=== PATIENT | female | born 1985 | race Hispanic/Latino ===

== ENCOUNTER 2018-04-25 17:02 | Emergency (ER) | payer OTHER ==
[~2018-04-25] VITALS: Ht 160 cm; Wt 78.0 kg
[2018-04-25 19:21] LABS: BASOPHILS % 0.2 % (0.0-1.0); EOSINOPHILS % 0.4 % (0.0-6.0); HEMATOCRIT 40.9 % (34.2-44.1); HEMOGLOBIN 13.7 g/dL (12.0-16.0); LYMPHOCYTES # (AUTO) 0.6 (1.0-3.2); LYMPHOCYTES % 11.4 % (18.0-39.1); MEAN CORPUSCULAR HEMOGLOBIN 31.3 pg (28-32); MEAN CORPUSCULAR HGB CONC 33.5 g/dL (31-35); MEAN CORPUSCULAR VOLUME 93.4 fL (81-99); MONOCYTES # (AUTO) 0.3 (0.2-0.8); MONOCYTES % 4.4 % (4.4-11.3); NEUTROPHILS # (AUTO) 4.7 (2.1-6.9); NEUTROPHILS % 83.4 % (38.7-80.0); PLATELET COUNT 258 x10e3/uL (140-360); RED BLOOD COUNT 4.38 x10e6/uL (3.6-5.1)
[2018-04-25 19:42] LABS: ALANINE AMINOTRANSFERASE 17 IU/L (0-55); ALBUMIN/GLOBULIN RATIO 1.1 (0.8-2.0); ALKALINE PHOSPHATASE 49 IU/L (40-150); ANION GAP 13.7 mmol/L (8-16); BLOOD UREA NITROGEN 7 mg/dL (7-26); BUN/CREATININE RATIO 10 (6-25); CALCIUM 9.7 mg/dL (8.4-10.2); CARBON DIOXIDE 26 mmol/L (22-29); CHLORIDE 99 mmol/L (98-107); CREATININE, SERUM 0.71 mg/dL (0.57-1.11); EST GLOMERULAR FILTRATION RATE > 60 ML/MIN (60-); GLUCOSE 94 mg/dL (74-118); POTASSIUM 3.7 mmol/L (3.5-5.1); SODIUM 135 mmol/L (136-145)
[2018-04-25 19:54] LABS: MAGNESIUM 2.2 MG/DL (1.3-2.1)
[2018-04-25 20:43] LABS: BILIRUBIN,URINE NEGATIVE (NEGATIVE); CLARITY,URINE CLEAR (CLEAR); COLOR,URINE YELLOW (YELLOW); KETONES,URINE NEGATIVE (NEGATIVE); LEUKOCYTE ESTERASE ,URINE NEGATIVE (NEGATIVE); NITRITE,URINE NEGATIVE (NEGATIVE); PREGNANCY TEST, URINE NEGATIVE (NEGATIVE); PROTEIN,URINE DIPSTICK NEGATIVE (NEGATIVE); URINE UROBILINOGEN 0.2 mg/dL (0.2 - 1)
[2018-04-25 20:52] LABS: BACTERIA,URINE MODERATE /HPF; EPITHELIAL CELLS,URINE MODERATE /LPF
[2018-04-25] MEDS ORDERED: DONNATAL/LIDOCAINE/MAALOX 30 ML SUSP PO ONE ×2 (21:00→21:45)
--- NOTE | 2018-04-25 21:46 | Diagnostic Imaging Report ---
CT Abdomen And Pelvis with Intravenous Contrast INDICATION: Mid abdominal/epigastric pain ^EPIGASTRIC PAIN ^[id number] ^2116 TECHNIQUE: Thin collimation axial images obtained from the diaphragm to the level of the pubic symphysis following the uneventful administration of 100 cc of low osmolar, nonionic intravenous contrast. Dose reduction techniques used: Automated exposure control, adjustment of the mAs and/or kVp according to patient size, standardized low-dose protocol, and/or iterative reconstruction technique. RADIATION DOSE: Total DLP: 401.73 mGy*cm Estimated effective dose: (DLP x 0.015 x size factor) mSv CTDIvol has been reviewed. It is below the limits set by the Radiation Protocol Committee (RPC). COMPARISON: None. ABDOMEN FINDINGS: Lung Bases: Clear. The visualized portions of the mediastinum are normal.. Liver: Mildly decreased attenuation. Multiple low attenuating lesions in each lobe, particularly the left lobe, measuring up to 2.3 x 2.8 cm. This largest lesion is lobulated. No hypervascular lesions. Gallbladder: Present and appears normal. No biliary ductal dilatation. Pancreas: Normal attenuation without mass or ductal dilatation. Spleen: Normal in size. No evidence of mass.. Adrenal Glands: No evidence for mass. Kidneys: Right: Normal enhancement. No soft tissue mass. No hydronephrosis. Left: Normal enhancement. No soft tissue mass. No hydronephrosis. Lymph Nodes: No enlarged abdominal or retroperitoneal lymph nodes. Aorta: Normal in diameter PELVIS FINDINGS: Bowel: Stomach: There is fluid and food distending the stomach. Small Bowel: A mid small bowel loop is distended with fluid to 2.7 cm with normal mural enhancement and without surrounding inflammation. Remainder of the small bowel is normal. No inspissated enteric contents. Large Bowel: Normal in caliber with normal wall thickness. Appendix: Normal appendix. Bladder: Normal. The uterus is present and normal in morphology. No adnexal mass. Peritoneum/retroperitoneum: No free fluid or fluid collection. Bones: Unremarkable. Soft tissues: Unremarkable. IMPRESSION: 1. Mildly distended small bowel loop in the midabdomen without dilatation. This may represent a very mild ileus or the result of water ingestion. The remainder of the bowel is normal. 2. Multiple hepatic cysts as described above. Mild steatosis. Signed by: Dr. Kelley Novak MD on 04/25/2018 9:42 PM
[2018-04-25] MEDS ORDERED: IOPAMIDOL 370 MG/ML 200 ML INFUS..BTL INJ ONE (22:54)
[2018-04-25] MEDS ORDERED: SODIUM CHLORIDE 0.9% 50ML 50 ML ONE (22:54)
[2018-04-25 23:15] VITALS: BP 98/65
== END 2018-04-25 23:28 | disposition home or self-care (01) ==
LOC: ER 17:02
DX: R10.13 Epigastric pain (principal); R11.0 Nausea; K21.9 Gastro-esophageal reflux disease without esophagitis
CPT/HCPCS: 36415; 74177; 80053; 81001; 81025; 82150; 83690; 83735; 85025; 99283; Q9967

== ENCOUNTER 2018-12-30 12:05 | Emergency (ER) | payer OTHER ==
[~2018-12-30] VITALS: Ht 160 cm; Wt 78.0 kg
--- OUTSIDE RECORDS SUMMARY | 2018-12-30 12:07 | XMS REPORT ---
Author Author [facility] Address Unknown Phone Unavailable Care Team Providers Care Unit Manager Rn Name Role Phone Peggy RATLIFF Unavailable Unavailable Payers Payer Name Policy Type Policy Number Effective Date Expiration Date Problems This patient has no known problems. Allergies, Adverse Reactions, Alerts Allergy Name Allergy Type Status Severity Reaction(s) Onset Date Inactive Date Treating Clinician Comments No Known Allergies DA Active U 2018-05-06 00:00:00 Medications This patient has no known medications. Results Test Description Test Time Test Comments Text Results Atomic Results Result Comments DUODENUM,BIOPSY 2018-05-08 15:37:00 RUN DATE: 05/08/18 [facility] PAGE 1 RUN TIME: 1537 Specimen Inquiry RUN USER: INTERFACE PATIENT: KRISTEN PEREZ LOC: FRANCES U #: [id number] AGE/SX: 32/F ROOM: RE05/07/18REG DR: Rashad Chaudhry MD : 81 BED: DIS: STATUS: [facility] [place] TLOC: SPEC #: [id number] RECD: 05/07/18 STATUS: DAYNE HARP #: [id number] ROSA: 05/07/[address] [facility] [address]: Rashad Chaudhry MD ENTERED: 05/07/18 SP TYPE: BX DUODEN OTHR DR: Isha Jansen MD ORDERED: GROSS COPIES TO: Rashad Chaudhry MD [address] [place] [address] Isha Jansen MD [address] [facility] [place] [address] PROCEDURES: GROSS (05/08/18-152) TISSUES: 1. DUODENUM, NOS - 2nd PORTION BX 2. ANTRUM - BX 3. ESOPHAGUS, NOS - PROXIMAL NODULE CLINICAL HISTORY COLLECTION DATE: 05/07/2018 ABDOMINAL PAIN POST-OP DIAGNOSIS: MILD DISTAL ESOPHAGITIS, GASTRITIS, MINUTE NODULE CERVICAL ESOPHAGUS COMMENT A few intraepithelial lymphocytes are identified in sections of the first specimen. The majority pf the villi are unremarkable in appearance but focal, mild blunting is noted. The findings are non-specific but suggestive of sprue. Correlation is necessary. Intradepartmental consultation: [facility] FINAL DIAGNOSIS Second portion of duodenum, biopsy: DUODENAL MUCOSA WITH UNREMARKABLE VILLOUS ARCHITECTURE, FOCAL AREAS OF MILD VILLOUS BLUNTING, AND MILDLY INCREASED INTRAEPITHELIAL LYMPHOCYTES NEGATIVE FOR MALIGNANCY HISTOLOGIC FEATURES SUGGESTIVE OF SPRUE CONTINUED ON NEXT PAGE RUN DATE: 05/08/18 [facility] PAGE 2 RUN TIME: 1537 Specimen Inquiry RUN USER: INTERFACE SPEC #: [id number] PATIENT: KRISTEN PEREZ #[id number] (Continued) FINAL DIAGNOSIS (Continued) Gastric antrum, biopsy: GASTRIC MUCOSA WITH NO SIGNIFICANT ACUTE OR CHRONIC INFLAMMATORY INFILTRATE NEGATIVE FOR INTESTINAL METAPLASIA NO AREAS OF MUCOSAL EROSION/ULCERATION NEGATIVE FOR HELICOBACTER ORGANISMS NEGATIVE FOR MALIGNANCY Proximal esophageal nodule, biopsy: SQUAMOUS MUCOSA WITH MILD ELONGATION OF SQUAMOUS PAPILLAE AND FEW INTRAEPITHELIAL LYMPHOCYTES NO INCREASED NUMBER OF INTRAEPITHELIAL EOSINOPHILS NO GLANDULAR EPITHELIUM PRESENT NEGATIVE FOR HIGH GRADE DYSPLASIA AND MALIGNANCY RRB/arnaud D [phone] MACROSCOPIC The first specimen is received in formalin, labeled with the patient's name, identified as "2nd portion duodenum". It consists of fernandez biopsy tissue measuring 0.5 cm in aggregate, submitted as (1). The second specimen is received in formalin, labeled with the patient's name, identified as "antrum bx". It consists of fernandez biopsy tissue measuring 0.6 cm in aggregate, submitted as (2). An H E and a Giemsa stain will be prepared. The third specimen is received in formalin, labeled with the patient's name, identified as "proximal esophagus nodule". It consists of fernandez biopsy tissue measuring 0.3 cm, submitted as (3). GROSS PERFORMED AT [facility] [address] [facility] [place] [address] (P)[phone] MICROSCOPIC All of the stains, including any controls performed, stain appropriately. MICROSCOPIC PERFORMED AT [facility] [address] [facility] [place] [address] (P)[phone] CONTINUED ON NEXT PAGE RUN DATE: 05/08/18 [facility] PAGE 3 RUN TIME: 1537 Specimen Inquiry RUN USER: INTERFACE SPEC #: [id number] PATIENT: KRISTEN PEREZ #[id number] (Continued) PERFORMING SITE Diagnosis performed at: [facility], [place] [address] [facility] [place] [address] Signed SIGNATURE ON FILE Santino Galvin MD 05/08/18 1537 END OF REPORT UR HCG QUAL 2018-05-06 10:48:00 UR HCG QUAL (test code=HCGQLU) NEGATIVE This HCGQL test is NOT applicable for MALE patients.Check with nurse about probable order error.If Tumor Marker Test needed, nurse should order test "HCGTU"(Test #[id number]) CT ABDOMEN/PELVIS [id number] 21:35:00 [place] [address] Patient Name: KRISTEN PEREZ MR #: [id number] : 1985 Age/Sex: 32/F Req #: [id number] [facility] Physician: Ordered by: ABENA RATLIFF MD Report #: [id number] Location: ER Room/Bed: Procedure: [id number] CT/CT ABDOMEN/PELVIS W Exam Date: 04/25/18 Exa m Time: 2116 REPORT STATUS: Signed CT Abdomen And Pelvis with Intravenous Contrast INDICATION: Mid abdomina l/epigastric pain EPIGASTRIC PAIN [id number] TECHNIQUE: Thin collimation axial images obtained from the diaphragm to the level of the pubic symphysis following the uneventful administration of 100 cc of low osmolar, nonionic intravenous contrast. Dose reduction techniques used: Automated ex posure control, adjustment of the mAs and/or kVp according to patient size, st andardized low-dose protocol, and/or iterative reconstruction technique. RADIATION DOSE: Total DLP: 401.73 mGy*cm Estimated effective dose: (DLP x 0.015 x size factor) mSv CTDIvol has been reviewed. It is below the limits set by the Radiation Protocol Committee (RPC). COMPARISO N: None. ABDOMEN FINDINGS: Lung Bases: Clear. The visualized portion s of the mediastinum are normal.. Liver: Mildly decreased attenuation. Mult iple low attenuating lesions in each lobe, particularly the left lobe, measuri ng up to 2.3 x 2.8 cm. This largest lesion is lobulated. No hypervascular lesi ons. Gallbladder: Present and appears normal. No biliary ductal dilatation. Pancreas: Normal attenuation without mass or ductal dilatation. Splee n: Normal in size. No evidence of mass.. Adrenal Glands: No evidence for m ass. Kidneys: Right: Normal enhancement. No soft tissue mass. No hy dronephrosis. Left: Normal enhancement. No soft tissue mass. No hydronep hrosis. Lymph Nodes: No enlarged abdominal or retroperitoneal lymph nodes. Aorta: Normal in diameter PELVIS FINDINGS: Bowel: Stomach: There is fluid and food distending the stomach. Small Bowel: A mid small bowel loop is distended with fluid to 2.7 cm with normal mural enhancement and wit hout surrounding inflammation. Remainder of the small bowel is normal. No insp issated enteric contents. Large Bowel: Normal in caliber with normal wall th ickness. Appendix: Normal appendix. Bladder: Normal. The uterus is present and normal in morphology. No adnexal mass. Peritoneum/retroperiton eum: No free fluid or fluid collection. Bones: Unremarkable. Soft tiss ues: Unremarkable. IMPRESSION: 1. Mildly distended small bowel loop in the midabdomen without dilatation. This may represent a very mild ileus or the result of water ingestion. The remainder of the bowel is normal. 2. Multiple hepatic cysts as described above. Mild steatosis. Signed by: Dr. Christina Novak MD on 04/25/2018 9:42 PM Dictated By: CHRISTINA NOVAK MD 41 Transcribed By: FELIPE on 04/25/182141 COPY TO: ABENA RATLIFF MD
[2018-12-30] MEDS ORDERED: DIATRIZOATE MEGL/DIATRIZOA SOD 30 ML BTL PO ONE (13:08)
[2018-12-30 13:09] LABS: BASOPHILS % 0.5 % (0.0-1.0); EOSINOPHILS # (AUTO) 0.1 (0.0-0.4); EOSINOPHILS % 0.8 % (0.0-6.0); HEMATOCRIT 36.3 % (34.2-44.1); HEMOGLOBIN 12.5 g/dL (12.0-16.0); LYMPHOCYTES # (AUTO) 1.8 (1.0-3.2); LYMPHOCYTES % 27.9 % (18.0-39.1); MEAN CORPUSCULAR HEMOGLOBIN 32.8 pg (28-32); MEAN CORPUSCULAR HGB CONC 34.4 g/dL (31-35); MEAN CORPUSCULAR VOLUME 95.3 fL (81-99); MONOCYTES # (AUTO) 0.5 (0.2-0.8); MONOCYTES % 7.1 % (4.4-11.3); NEUTROPHILS # (AUTO) 4.2 (2.1-6.9); NEUTROPHILS % 63.4 % (38.7-80.0); PLATELET COUNT 243 x10e3/uL (140-360); RED BLOOD COUNT 3.81 x10e6/uL (3.6-5.1); RED CELL DISTRIBUTION WIDTH 12.7 % (11.7-14.4)
[2018-12-30 13:32] LABS: ALANINE AMINOTRANSFERASE 16 IU/L (0-55); ALBUMIN 3.9 g/dL (3.5-5.0); ALBUMIN/GLOBULIN RATIO 1.1 (0.8-2.0); ALKALINE PHOSPHATASE 50 IU/L (40-150); ANION GAP 12.4 mmol/L (8-16); BLOOD UREA NITROGEN 5 mg/dL (7-26); BUN/CREATININE RATIO 8 (6-25); CALCIUM 9.4 mg/dL (8.4-10.2); CARBON DIOXIDE 27 mmol/L (22-29); CHLORIDE 100 mmol/L (98-107); CREATININE, SERUM 0.65 mg/dL (0.57-1.11); EST GLOMERULAR FILTRATION RATE > 60 ML/MIN (60-); GLUCOSE 84 mg/dL (74-118); POTASSIUM 3.4 mmol/L (3.5-5.1); SODIUM 136 mmol/L (136-145)
[2018-12-30] MEDS ORDERED: SODIUM CHLORIDE 0.9% 50ML 50 ML ONE (13:53)
[2018-12-30] MEDS ORDERED: IOPAMIDOL 370 MG/ML 200 ML INFUS..BTL INJ ONE (13:53)
[2018-12-30 14:57] LABS: PREGNANCY TEST, URINE NEGATIVE (NEGATIVE)
[2018-12-30 15:18] LABS: BACTERIA,URINE RARE /HPF; BILIRUBIN,URINE NEGATIVE (NEGATIVE); CLARITY,URINE CLEAR (CLEAR); COLOR,URINE YELLOW (YELLOW); EPITHELIAL CELLS,URINE FEW /LPF; KETONES,URINE NEGATIVE (NEGATIVE); LEUKOCYTE ESTERASE ,URINE NEGATIVE (NEGATIVE); NITRITE,URINE NEGATIVE (NEGATIVE); PROTEIN,URINE DIPSTICK NEGATIVE (NEGATIVE); URINE UROBILINOGEN 0.2 mg/dL (0.2 - 1)
--- NOTE | 2018-12-30 17:02 | Diagnostic Imaging Report ---
CT Abdomen And Pelvis with Intravenous Contrast INDICATION: Diarrhea, constipation ^LLQ Quad pain ^[id number] ^1537 TECHNIQUE: Thin collimation axial images obtained from the diaphragm to the level of the pubic symphysis following the uneventful administration of 100 cc of low osmolar, nonionic intravenous contrast. Oral contrast was administered. Dose reduction techniques used: Automated exposure control, adjustment of the mAs and/or kVp according to patient size, standardized low-dose protocol, and/or iterative reconstruction technique. RADIATION DOSE: Total DLP: 503.4 mGy*cm Estimated effective dose: (DLP x 0.015 x size factor) mSv CTDIvol has been reviewed. It is below the limits set by the Radiation Protocol Committee (RPC). COMPARISON: CT abdomen/pelvis 04/25/2018. ABDOMEN FINDINGS: Lung Bases: Clear. The visualized portions of the mediastinum are normal. Liver: Mild steatosis. Cysts in the left lobe are stable, with the largest measuring 3.0 x 2.7 cm. There are scattered subcentimeter low attenuating lesions in each lobe suggestive of cysts. These are also stable. Gallbladder: Present and appears normal. No biliary ductal dilatation. Pancreas: Normal attenuation without mass or ductal dilatation. Spleen: Normal in size. No evidence of mass. Adrenal Glands: No evidence for mass. Kidneys: Right: Normal enhancement. No soft tissue mass. No hydronephrosis. Left: Normal enhancement. No soft tissue mass. No hydronephrosis. Lymph Nodes: No lymphadenopathy. Aorta: Normal in diameter PELVIS FINDINGS: Bowel: Stomach: Collapsed but otherwise normal. Small Bowel: Enteric contrast is within distal small bowel loops. There is no dilatation or mural thickening of the small bowel. Large Bowel: Contains enteric contrast in the right colon. Moderate burden of stool throughout. There is no evidence of dilatation or focal mural thickening. No pericolonic inflammation. Appendix: Normal appendix. Bladder: Normal. The uterus is present and normal in morphology. There is a cyst or dominant follicle in the left ovary measuring 2.4 cm. Peritoneum/retroperitoneum: No free fluid or fluid collection. Bones: The hemangioma in T10 is stable. No new focal osseous lesions. IMPRESSION: 1. No evidence for bowel obstruction or inflammation. Normal appendix. Moderate stool burden may correspond to constipation in the appropriate clinical context. 2. Stable hepatic cysts. 3. Cyst or dominant follicle in the left ovary. Signed by: Dr. Kelley Novak MD on 12/30/2018 4:59 PM
== END 2018-12-30 17:46 | disposition home or self-care (01) ==
LOC: ER 12:05
DX: R10.32 Left lower quadrant pain (principal); K59.00 Constipation, unspecified
CPT/HCPCS: 36415; 74177; 80053; 81001; 81025; 85025; 99284; Q9967

== ENCOUNTER 2019-10-21 16:57 | Emergency (ER) | payer OTHER ==
[~2019-10-21] VITALS: Ht 160 cm; Wt 83.9 kg
[2019-10-21] MEDS ORDERED: KETOROLAC TROMETHAMINE 30 MG/ML VIAL IV NR (18:00)
[2019-10-21] MEDS ORDERED: SODIUM CHLORIDE FLUSH 10 ML SYR INJ PRN (18:00)
[2019-10-21] MEDS ORDERED: ONDANSETRON HCL INJ 2MG/ML 2ML 2 MG/ML VIAL IV NR (18:00)
[2019-10-21] MEDS ORDERED: LIDOCAINE VISC 2% SOLN 15 ML UDC ONE (18:01)
[2019-10-21] MEDS ORDERED: MAGNESIUM/ALUMINUM/SIMETHICONE 30 ML UDC ONE (18:01)
[2019-10-21] MEDS ORDERED: BELLADONNA ALK/PHENOBARBITAL 5 ML UDC ONE (18:01)
--- OUTSIDE RECORDS SUMMARY | 2019-10-21 18:07 | XMS REPORT | Continuity of Care Document ---
Author Author [facility] t Organization [facility] Address [address] [place] [address] Phone Unavailable Care Team Providers Care Photo Colorer Name Role Phone Willi JANSEN M.D. PCP ABENA CHUA Unavailable Payers Payer Name Policy Type Policy Number Effective Date Expiration Date Peggy Lo [facility] [id number] 2015 00:00:00 [facility] Problems This patient has no known problems. Allergies, Adverse Reactions, Alerts Allergy Name Allergy Type Status Severity Reaction(s) Onset Date Inacti ve Date Treating Clinician Comments Source No Known Allergies DA Active U 2018-05-06 00:00:00 [facility] Medications This patient has no known medications. Procedures Procedure Date / Time Performed Performing Clinician Sour e Computed tomography of abdomen and pelvis with contrast 2018 00:00:00 TRACI BELTRÁN [facility] Computed tomography of abdomen and pelvis with contrast 2018 00:00:00 ABENA CHUA [facility] Encounters Start Date/Time End Date/Time Encounter Type Admission Type Attendi [facility] Facility Care Department Encounter ID Source 2018-12-30 12:05:00 2018-12-30 17:46:00 Departed Emergency Room 1 [facility] [id number] [facility] 2018-04-25 17:02:00 2018-04-25 23:28:00 Departed Emergency Room 1 EVY ABENA [facility] [id number] [facility] Results Test Description Test Time Test Comments Results Result Comments Source CT ABDOMEN/PELVIS W 2018-12-30 16:53:00 [facility] [address] [address] Patient Name: KRISTEN PEREZ MR #: [id number] : 1985 Age/Sex: 33/F Req #: [id number] Adm Physician: Ordered by: TRACI BELTRÁN NP Report #: [id number] Location: ER Room/Bed: Procedure: [id number] CT/CT ABDOMEN/PELVIS W Exam Date: 12/30/18 Exam Time: 1537 REPORT STATUS: Signed CT Abdomen And Pelvis with Intravenous Contrast INDICATION: Diarrhea, constipation LLQ Quad pain [id number] TECHNIQUE: Thin collimation axial images obtained from the diaphragm to the level of the pubic symphysis following the uneventful administration of 100 cc of low osmolar, nonionic intravenous contrast. Oral contrast was administered. Dose reduction techniques used: Automated exposure control, adjustment of the mAs and/or kVp according to patient size, standardized low- dose protocol, and/or iterative reconstruction technique. RADIATION DOSE: Total DLP: 503.4 mGy*cm Estimated effective dose: (DLP x 0.015 x size factor) mSv CTDIvol has been reviewed. It is below the limits set by the Radiation Protocol Committee (RPC). COMPARISON: CT abdomen/pelvis 04/25/2018. ABDOMEN FINDINGS: Lung Bases: Clear. The visualized portions of the mediastinum are normal. Liver: Mild steatosis. Cysts in the left lobe are stable, with the largest measuring 3.0 x 2.7 cm. There are scattered subcentimeter low attenuating lesions in each lobe suggestive of cysts. These are also stable. Gallbladder: Present and appears normal. No biliary ductal dilatation. Pancreas: Normal attenuation without mass or ductal dilatation. Spleen: Normal in size. No evidence of mass. Adrenal Glands: No evidence for mass. Kidneys: Right: Normal enhancement. No soft tissue mass. No hydronephrosis. Left: Normal enhancement. No soft tissue mass. No hydronephrosis. Lymph Nodes: No lymphadenopathy. Aorta: Normal in diameter PELVIS FINDINGS: Bowel: Stomach: Collapsed but otherwise normal. Small Bowel: Enteric contrast is within distal small bowel loops. There is no dilatation or mural thickening of the small bowel. Large Bowel: Contains enteric contrast in the right colon. Moderate burden of stool throughout. There is no evidence of dilatation or focal mural thickening. No pericolonic inflammation. Cliff endix: Normal appendix. Bladder: Normal. The uterus is present and normal in morphology. There is a cyst or dominant follicle in the left ovary measuring 2.4 cm. Peritoneum/retroperitoneum: No free fluid or fluid collection. Bones: The hemangioma in T10 is stable. No new focal osseous lesions. IMPRESSION: 1. No evidence for bowel obstruction or inflammation. Normal appendix. Moderate stool burden may correspond to constipation in the appropriate clinical context. 2. Stable hepatic cysts. 3. Cyst or dominant follicle in the left ovary. Signed by: Dr. Christina Novak MD on 12/30/2018 4:59 PM Dictated By: CHRISTINA NOVAK MD 56 Transcribed By: FELIPE on 12/30/181658 COPY TO: TRACI BELTRÁN NP Urine Color 2018-12-30 15:18:00 Test Item Urine Color (test code = 5778-6) YELLOW YELLOW [facility] Xchlkut5871-75-47 15:18:00* Test Item Value Reference Range Interpretation Comments Urine Clarity (test code = 30421-7) CLEAR CLEAR [facility] Specific Mvneceb4491-89-51 15:18:00 * Test Item Value Reference Range Interpretation Comments Urine Specific [place] (test code = 5811-5) <=1.005 1.010-1.02 5 [facility] kU8125-93-42 15:18:00* Test Item Value Reference Range Interpretation Comments Urine pH (test code = 10971-9) 6.5 5-7 [facility] Leukocyte Espnpcgl5222-96-22 15:18:00* Test Item Value Reference Range Interpretation Comments Urine Leukocyte Esterase (test code = 26630-9) NEGATIVE NEGATIV E [facility] Gyyjdad6582-34-07 15:18:00* Test Item Value Reference Range Interpretation Comments Urine Nitrite (test code = 50755-2) NEGATIVE NEGATIVE [facility] Hrvdvog7202-60-80 15:18:00* Test Item Value Reference Range Interpretation Comments Urine Protein (test code = 10727-4) NEGATIVE NEGATIVE [facility] Glucose (UA)2018-12-30 15:18:00* Test Item Value Reference Range Interpretation Comments Urine Glucose (UA) (test code = 97524-3) NEGATIVE NEGATIVE [facility] Zmwoskl8183-57-06 15:18:00* Test Item Value Reference Range Interpretation Comments Urine Ketones (test code = 96778-8) NEGATIVE NEGATIVE [facility] Baqybzyuohzn1649-44-88 15:18:00* Test Item Value Reference Range Interpretation Comments Urine Urobilinogen (test code = 61101-7) 0.2 0.2-1 [facility] Kfgoamiii3608-86-84 15:18:00* Test Item Value Reference Range Interpretation Comments Urine Bilirubin (test code = 1977-8) NEGATIVE NEGATIVE [facility] Wtwhu5725-70-92 15:18:00* Test Item Value Reference Range Interpretation Comments Urine Blood (test code = 03796-7) TRACE NEGATIVE [facility] KGY1683-71-43 15:18:00* Test Item Value Reference Range Interpretation Comments Urine WBC (test code = 5821-4) NONE 0-5 [facility] SNT9552-61-15 15:18:00* Test Item Value Reference Range Interpretation Comments Urine RBC (test code = 99676-6) NONE 0-5 [facility] Adnizfeq5602-68-68 15:18:00* Test Item Value Reference Range Interpretation Comments Urine Bacteria (test code = 64776-2) RARE NONE [facility] Epithelial Tpnfd1290-46-65 15:18:00 * Test Item Value Reference Range Interpretation Comments Urine Epithelial Cells (test code = 62289-3) FEW NONE [facility] Riwx8024-15-57 14:57:00* Test Item Value Reference Range Interpretation Comments Urine Test (test code = 2106-3) NEGATIVE NEGATIVE [facility] Tnvsv9733-33-62 13:34:00* Test Item Value Reference Range Interpretation Comments Sodium Level (test code = 2951-2) 136 136-145 [facility]Pot[facility] Ptphh2753-48-97 13:34:00* Test Item Value Reference Range Interpretation Comments Potassium Level (test code = 2823-3) 3.4 3.5-5.1 L [facility] HospitalChloride Lccyc2240-19-62 13:34:00* Test Item Value Reference Range Interpretation Comments Chloride Level (test code = 2075-0) 100 98-107 [facility] HospitalCarbon Dioxide Zsony1038-12-40 13:34:00* Test Item Value Reference Range Interpretation Comments Carbon Dioxide Level (test code = 2028-9) 27 22-29 [facility] HospitalAnion Joc2529-84-77 13:34:00* Test Item Value Reference Range Interpretation Comments Anion Gap (test code = 96141-8) 12.4 8-16 [facility] HospitalBlood Urea Xqdmnxfb6764-91-96 13:34:00* Test Item Value Reference Range Interpretation Comments Blood Urea Nitrogen (test code = 3094-0) 5 7-26 L [facility] HospitalCreatinine2019-11-04 13:34:00* Test Item Value Reference Range Interpretation Comments Creatinine (test code = 2160-0) 0.65 0.57-1.11 [facility] HospitalBUN/Creatinine Iesls1567-33-63 13:34:00* Test Item Value Reference Range Interpretation Comments BUN/Creatinine Ratio (test code = 3097-3) 8 6-25 [facility] HospitalEstimat Glomerular Filtration Rate 2018-12-30 13:34:00* Test Item Value Reference Range Interpretation Comments Estimat Glomerular Filtration Rate (test code = 498735368) > 60 >60 Ranges were taken from the National Kidney Disease Education Program and the [facility] [employer] literature.Reference ranges:60 or greater: Xbpyfl69-55 ( for 3 consecutive months): Chronic kidney disease 15 or less: Kidney failureHouston Methodist HospitalGlucose Pirpg2068-90-72 13:34:00* Test Item Value Reference Range Interpretation Comments Glucose Level (test code = PZK9325) 84 74-118 [facility] HospitalCalcium Jzkyt7970-93-31 13:34:00* Test Item Value Reference Range Interpretation Comments Calcium Level (test code = 49265-6) 9.4 8.4-10.2 [facility]Tostew[facility] Bkibqobpu0365-41-01 13:34:00* Test Item Value Reference Range Interpretation Comments Total Bilirubin (test code = 1975-2) 0.4 0.2-1.2 [facility] HospitalAspartate Amino Transf (AST/SGOT) 2018-12-30 13:34:00* Test Item Value Reference Range Interpretation Comments Aspartate Amino Transf (AST/SGOT) (test code = Aspartate Amino Transf (AST/SGOT)) 16 5-34 [facility] HospitalAlanine Aminotransferase (ALT/SGPT) 2018-12-30 13:34:00* Test Item Value Reference Range Interpretation Comments Alanine Aminotransferase (ALT/SGPT) (test code = 1742-6) 16 0-55 [facility] HospitalTotal Xaccxxa5110-95-31 13:34:00* Test Item Value Reference Range Interpretation Comments Total Protein (test code = 2885-2) 7.6 6.5-8.1 [facility] HospitalAlbumin2019-11-04 13:34:00* Test Item Value Reference Range Interpretation Comments Albumin (test code = 1751-7) 3.9 3.5-5.0 [facility] HospitalGlobulin2019-11-04 13:34:00* Test Item Value Reference Range Interpretation Comments Globulin (test code = 25431-6) 3.7 2.3-3.5 H [facility] HospitalAlbumin/Globulin Dxoin5447-08-12 13:34:00 * Test Item Value Reference Range Interpretation Comments Albumin/Globulin Ratio (test code = 1759-0) 1.1 0.8-2.0 [facility] HospitalAlkaline Ymxvngeofur6414-00-33 13:34:00* Test Item Value Reference Range Interpretation Comments Alkaline Phosphatase (test code = 6768-6) 50 40-150 [facility] HospitalWhite Blood Vypui0468-38-34 13:13:00* Test Item Value Reference Range Interpretation Comments White Blood Count (test code = 6690-2) 6.60 4.8-10.8 [facility] HospitalRed Blood Dszbt7009-38-66 13:13:00* Test Item Value Reference Range Interpretation Comments Red Blood Count (test code = 789-8) 3.81 3.6-5.1 [facility] HospitalHemoglobin2019-11-04 13:13:00* Test Item Value Reference Range Interpretation Comments Hemoglobin (test code = 10167-8) 12.5 12.0-16.0 [facility] HospitalHematocrit2019-11-04 13:13:00* Test Item Value Reference Range Interpretation Comments Hematocrit (test code = 4544-3) 36.3 34.2-44.1 [facility] HospitalMean Corpuscular Mgratq2456-00-02 13:13:00* Test Item Value Reference Range Interpretation Comments Mean Corpuscular Volume (test code = 787-2) 95.3 81-99 [facility] HospitalMean Corpuscular Snojtsmqls2811-74-47 13:13:00* Test Item Value Reference Range Interpretation Comments Mean Corpuscular Hemoglobin (test code = 785-6) 32.8 28-32 H [facility] HospitalMean Corpuscular Hemoglobin Concent 2018-12-30 13:13:00* Test Item Value Reference Range Interpretation Comments Mean Corpuscular Hemoglobin Concent (test code = 786-4) 34.4 31-35 [facility] HospitalRed Cell Distribution Ygury6663-69-49 13:13:00* Test Item Value Reference Range Interpretation Comments Red Cell Distribution Width (test code = 20948-8) 12.7 11.7 -14.4 [facility] HospitalPlatelet Fpwvi0046-66-83 13:13:00* Test Item Value Reference Range Interpretation Comments Platelet Count (test code = 777-3) 243 140-360 [facility] HospitalNeutrophils (%) (Auto)2018-12-30 13:13:00 * Test Item Value Reference Range Interpretation Comments Neutrophils (%) (Auto) (test code = 17263-5) 63.4 38.7-80.0 [facility] HospitalLymphocytes (%) (Auto)2018-12-30 13:13:00 * Test Item Value Reference Range Interpretation Comments Lymphocytes (%) (Auto) (test code = 736-9) 27.9 18.0-39.1 [facility] HospitalMonocytes (%) (Auto)2018-12-30 13:13:00* Test Item Value Reference Range Interpretation Comments Monocytes (%) (Auto) (test code = 5905-5) 7.1 4.4-11.3 [facility] HospitalEosinophils (%) (Auto)2018-12-30 13:13:00 * Test Item Value Reference Range Interpretation Comments Eosinophils (%) (Auto) (test code = 713-8) 0.8 0.0-6.0 [facility] HospitalBasophils (%) (Auto)2018-12-30 13:13:00* Test Item Value Reference Range Interpretation Comments Basophils (%) (Auto) (test code = 706-2) 0.5 0.0-1.0 [facility] HospitalIM GRANULOCYTES %2018-12-30 13:13:00* Test Item Value Reference Range Interpretation Comments IM GRANULOCYTES % (test code = IM GRANULOCYTES %) 0.3 0.0- 1.0 [facility] HospitalNeutrophils # (Auto)2018-12-30 13:13:00* Test Item Value Reference Range Interpretation Comments Neutrophils # (Auto) (test code = 751-8) 4.2 2.1-6.9 [facility] HospitalLymphocytes # (Auto)2018-12-30 13:13:00* Test Item Value Reference Range Interpretation Comments Lymphocytes # (Auto) (test code = 78569-5) 1.8 1.0-3.2 [facility] HospitalMonocytes # (Auto)2018-12-30 13:13:00* Test Item Value Reference Range Interpretation Comments Monocytes # (Auto) (test code = 742-7) 0.5 0.2-0.8 [facility] HospitalEosinophils # (Auto)2018-12-30 13:13:00* Test Item Value Reference Range Interpretation Comments Eosinophils # (Auto) (test code = 711-2) 0.1 0.0-0.4 [facility] HospitalBasophils # (Auto)2018-12-30 13:13:00* Test Item Value Reference Range Interpretation Comments Basophils # (Auto) (test code = 704-7) 0.0 0.0-0.1 [facility] HospitalAbsolute Immature Granulocyte (auto 2018-12-30 13:13:00* Test Item Value Reference Range Interpretation Comments Absolute Immature Granulocyte (auto (neris t code = Absolute Immature Granulocyte (auto) 0.02 0-0.1 [facility] HospitalDUODENUM,HTHMCF7187-55-55 15:37:00 RUN DATE: 05/08/18 [facility] PAGE 1 RUN TIME: 1537 Specimen Inqui ry RUN USER: INTERFACE PATIENT: KRISTEN PEREZ ACCT #: [id number] [facility] #: [id number] AGE/SX: 32/F ROOM: RE05/07/18[facility]: Rashad Chaudhry MD : 81 BED: DIS: STATUS: [facility] TLOC: SPEC #: [id number] RECD: 05/07/18 [id number] ROSA: 05/07/18-8 [facility] DR: Rashad Chaudhry MD ENTERED: 05/07/180690 SP TYPE: BX DUODEN OTHR DR: Isha Hernández MD ORDERED: GROSS COPIES TO: Rashad Chaudhry MD [address] [place] [address] Isha Jansen MD [address] [facility] [facility] [place] [address] PROCEDURES: GROSS (05/08/18-1527) TISSUES: 1. DUODENUM, NOS - 2nd PORTION BX 2. ANTRUM - BX 3. ESOPHAGUS, NOS - PROXIMAL NODULE CLINICAL HISTORY COLLECTION DATE: 05/07/2018 ABDOMINAL PAIN POST-OP DIAGNOSIS: MILD D ISTAL ESOPHAGITIS, GASTRITIS, MINUTE NODULE CERVICAL ESOPHAGUS COM MENT A few intraepithelial lymphocytes are identified in sections of the first specimen. The majority pf the villi are unremarkable in appearance but focal, mild blunting is noted. The findings are non-specific but suggestive of sprue. Correlation is necessary. Intradepartmental consultation: DMW FINAL DIAGNOSIS Second portion of duodenum, biopsy: DUODENAL MUCOSA WITH U NREMARKABLE VILLOUS ARCHITECTURE, FOCAL AREAS OF MILD VILLOUS BLUNTING, A ND MILDLY INCREASED INTRAEPITHELIAL LYMPHOCYTES NEGATIVE FOR MALIGNANCY HISTOLOGIC FEATURES SUGGESTIVE OF SPRUE CONTINUED ON NEXT PAGE RUN DATE: 05/08/18 [employer] [facility] PAGE 2 RUN TIME: 1537 Specimen Inquiry RUN USER: INTERFACE SPEC #: [id number] PATIENT: KRISTEN PEREZ #[id number] (Continued)----- ------- FINAL DIAGNOSIS (Continued) Gastric antrum, biopsy: GASTRIC MUCOSA WITH NO SIGNIFICANT ACUTE OR CHRONIC INFLAMMATORY INFILTRATE NEGATIVE FOR INTESTINAL METAPLASIA NO AREAS OF MU COSAL EROSION/ULCERATION NEGATIVE FOR HELICOBACTER ORGANISMS NEGAT JOSE FOR MALIGNANCY Proximal esophageal nodule, biopsy: SQUAMOUS MUCOSA WITH MILD ELONGATION OF SQUAMOUS PAPILLAE AND FEW INTRAEPITHELI AL LYMPHOCYTES NO INCREASED NUMBER OF INTRAEPITHELIAL EOSINOPHILS NO GLANDULAR EPITHELIUM PRESENT NEGATIVE FOR HIGH GRADE DYSPLASIA AND MAL IGNANCY RRB/arnaud D [phone] The fir st specimen is received in formalin, labeled with the patient's name, identifi ed as "2nd portion duodenum". It consists of fernandez biopsy tissue measuring 0.5 cm in aggregate, submitted as (1). The second specimen is received in form issa, labeled with the patient's name, identified as "antrum bx". It consists of fernandez biopsy tissue measuring 0.6 cm in aggregate, submitted as (2). An H E and a Giemsa stain will be prepared. The third specimen is received in fo rmalin, labeled with the patient's name, identified as "proximal esophagus nod ule". It consists of fernandez biopsy tissue measuring 0.3 cm, submitted as (3). GROSS PERFORMED AT [facility] [address] [place] [address] (p)[phone] MICROSCOPIC All of the stains, including any controls performed, stain cliff ropriately. MICROSCOPIC PERFORMED AT [facility] [address] [place] [address] (p)[phone] CONTINUED ON NEXT PAGE RUN DATE: 05/08/18 [facility] PAGE 3 RUN TIME: 1537 Specimen Inquiry RUN USER: INTERFACE - SPEC #: [id number] PATIENT: KRISTEN PEREZ #[id number] (Continued) PERFORMING SITE Diagnosis [facility] at: [facility] [address] [place] [address] Signed SIGNATURE ON FILE Santino Galvin MD 05/08/18 1537 END OF REPORT UR HCG LZTZ9220-26-76 10:48:00* Test Item Value Reference Range Interpretation Comments UR HCG QUAL (test code = HCGQLU) NEGATIVE This HCGQL test is NOT applicable for MALE patients.Check with nurse about probable order error.If Tumor Marker Test needed, nurse should order test "HCGTU"(Test #550.11670) CT ABDOMEN/PELVIS W2609-77-09 21:35:[address] [address] Patient Name: KRISTEN PEREZ MR #: [id number] : 1985 Age/Sex: 32/F Acc #: [id number] Req #: [id number] [facility] Physician: Ordered by: ABENA RATLIFF MD Report #: [id number] Location: ER Room/Bed: Procedure: [id number] -[id number] CT/CT [...] on 04/25/182141 COPY TO: ABENA RATLIFF MD Urine IES4299-17-64 20:52:00* Test Item Value Reference Range Interpretation Comments Urine WBC (test code = 5821-4) NONE 0-5 [facility] HospitalU[facility] XYA2325-80-08 20:52:00* Test Item Value Reference Range Interpretation Comments Urine RBC (test code = 25429-8) NONE 0-5 [facility] HospitalU[facility] Kaajcvdx0821-85-91 20:52:00* Test Item Value Reference Range Interpretation Comments Urine Bacteria (test code = 55184-4) MODERATE NONE H [facility] HospitalUrine Epithelial Uwuie5490-01-83 20:52:00 * Test Item Value Reference Range Interpretation Comments Urine Epithelial Cells (test code = 80934-4) MODERATE NONE [facility] HospitalU[facility] Mbfam9846-37-57 20:43:00* Test Item Value Reference Range Interpretation Comments Urine Color (test code = 5778-6) YELLOW YELLOW [facility] HospitalUrine Mwjkcvv5421-77-47 20:43:00* Test Item Value Reference Range Interpretation Comments Urine Clarity (test code = 26295-3) CLEAR CLEAR [facility] HospitalU[facility] Specific Uqvvzrr8487-59-64 20:43:00 * Test Item Value Reference Range Interpretation Comments Urine Specific [place] (test code = 5811-5) 1.010 1.010-1.02 5 [facility] HospitalUrine sC4680-72-01 20:43:00* Test Item Value Reference Range Interpretation Comments Urine pH (test code = 21154-0) 7 5-7 [facility] HospitalU[facility] Leukocyte Jzifbrni6909-78-48 20:43:00* Test Item Value Reference Range Interpretation Comments Urine Leukocyte Esterase (test code = 5799-2) NEGATIVE NEGATIVE [facility] HospitalU[facility] Pvhzvsw7698-12-00 20:43:00* Test Item Value Reference Range Interpretation Comments Urine Nitrite (test code = 32297-7) NEGATIVE NEGATIVE [facility] HospitalUrine Onnbsca3024-72-37 20:43:00* Test Item Value Reference Range Interpretation Comments Urine Protein (test code = 5804-0) NEGATIVE NEGATIVE [facility] HospitalUrine Glucose (UA)2018-04-25 20:43:00* Test Item Value Reference Range Interpretation Comments Urine Glucose (UA) (test code = 2349-9) NEGATIVE NEGATIVE [facility] HospitalUrine Ookjwwx4791-38-99 20:43:00* Test Item Value Reference Range Interpretation Comments Urine Ketones (test code = 10142-7) NEGATIVE NEGATIVE [facility] HospitalU[facility] Czzdvykjstii6537-74-47 20:43:00* Test Item Value Reference Range Interpretation Comments Urine Urobilinogen (test code = 20022-5) 0.2 0.2-1 [facility] HospitalU[facility] Bqntpzqzh0358-26-79 20:43:00* Test Item Value Reference Range Interpretation Comments Urine Bilirubin (test code = 1978-6) NEGATIVE NEGATIVE [facility] HospitalU[facility] Ajeam2891-87-10 20:43:00* Test Item Value Reference Range Interpretation Comments Urine Blood (test code = 07878-7) NEGATIVE NEGATIVE [facility] HospitalU[facility] Wsza3911-22-10 20:43:00* Test Item Value Reference Range Interpretation Comments Urine Test (test code = 2106-3) NEGATIVE NEGATIVE [facility] HospitalMagnesium Xlddd0301-58-19 20:02:00* Test Item Value Reference Range Interpretation Comments Magnesium Level (test code = 70319-6) 2.2 1.3-2.1 H [facility] HospitalAmylase Pqnks5409-78-26 20:02:00* Test Item Value Reference Range Interpretation Comments Amylase Level (test code = 1798-8) 46 25-125 [facility] HospitalLipase2019-02-28 20:02:00* Test Item Value Reference Range Interpretation Comments Lipase (test code = 3040-3) 19 [facility] HospitalMagnesium Lpjvt1933-42-82 20:02:00* Test Item Value Reference Range Interpretation Comments Magnesium Level (test code = 83229-4) 2.2 1.3-2.1 H [facility] HospitalAmylase Kzcra0458-32-69 20:02:00* Test Item Value Reference Range Interpretation Comments Amylase Level (test code = 1798-8) 46 25-125 [facility] HospitalLipase2019-02-28 20:02:00* Test Item Value Reference Range Interpretation Comments Lipase (test code = 3040-3) 78 [facility] Qvvct0213-66-84 19:43:00* Test Item Value Reference Range Interpretation Comments Sodium Level (test code = 2951-2) 135 136-145 L [facility] HospitalPotassium Khqvu4320-22-50 19:43:00* Test Item Value Reference Range Interpretation Comments Potassium Level (test code = 2823-3) 3.7 3.5-5.1 [facility] HospitalChloride Achdb2570-76-81 19:43:00* Test Item Value Reference Range Interpretation Comments Chloride Level (test code = 2075-0) 99 98-107 [facility] HospitalCarbon Dioxide Ywemu9787-94-81 19:43:00* Test Item Value Reference Range Interpretation Comments Carbon Dioxide Level (test code = 2028-9) 26 - [facility] HospitalAnion Hqd9618-67-39 19:43:00* Test Item Value Reference Range Interpretation Comments Anion Gap (test code = 90066-6) 13.7 8-16 [facility] HospitalBlood Urea [id number] 19:43:00* Test Item Value Reference Range Interpretation Comments Blood Urea Nitrogen (test code = 3094-0) 7 7-26 [facility]Creatinine2019-02-28 19:43:00* Test Item Value Reference Range Interpretation Comments Creatinine (test code = 2160-0) 0.71 0.57-1.11 [facility] HospitalBUN/Creatinine [id number] 19:43:00* Test Item Value Reference Range Interpretation Comments BUN/Creatinine Ratio (test code = 3097-3) 10 6- [facility] HospitalEstimat Glomerular Filtration Rate 2018-04-25 19:43:00* Test Item Value Reference Range Interpretation Comments Estimat Glomerular Filtration Rate (test code = 746900704) > 60 >60 Ranges were taken from the National Kidney Disease Education Program and the [facility] literature.Reference ranges:60 or greater: Nhkcis52-34 ( for 3 consecutive months): Chronic kidney disease 15 or less: Kidney failureHouston Methodist HospitalGlucose [id number] 19:43:00* Test Item Value Reference Range Interpretation Comments Glucose Level (test code = ISV4885) 94 74-118 [facility] HospitalCalcium Fgvda2957-90-50 19:43:00* Test Item Value Reference Range Interpretation Comments Calcium Level (test code = 14206-0) 9.7 8.4-10.2 [facility] HospitalTotal Seysffexx6614-12-43 19:43:00* Test Item Value Reference Range Interpretation Comments Total Bilirubin (test code = 1975-2) 0.4 0.2-1.2 [facility] HospitalAspartate Amino Transf (AST/SGOT) 2018-04-25 19:43:00* Test Item Value Reference Range Interpretation Comments Aspartate Amino Transf (AST/SGOT) (test code = Aspartate Amino Transf (AST/SGOT)) 17 5-34 [facility] HospitalAlanine Aminotransferase (ALT/SGPT) 2018-04-25 19:43:00* Test Item Value Reference Range Interpretation Comments Alanine Aminotransferase (ALT/SGPT) (test code = 1742-6) 17 0-55 [facility] HospitalTotal [id number] 19:43:00* Test Item Value Reference Range Interpretation Comments Total Protein (test code = 2885-2) 7.7 6.5-8.1 [facility] HospitalAlbumin2019-02-28 19:43:00* Test Item Value Reference Range Interpretation Comments Albumin (test code = 1751-7) 4.0 3.5-5.0 [facility] HospitalGlobulin2019-02-28 19:43:00* Test Item Value Reference Range Interpretation Comments Globulin (test code = 10168-5) 3.7 2.3-3.5 H [facility] HospitalAlbumin/Globulin [id number] 19:43:00 * Test Item Value Reference Range Interpretation Comments Albumin/Globulin Ratio (test code = 1759-0) 1.1 0.8-2.0 [facility] HospitalAlkaline Uxsrycovfxd1063-41-94 19:43:00* Test Item Value Reference Range Interpretation Comments Alkaline Phosphatase (test code = 6768-6) 49 40-150 [facility] HospitalWhite Blood Wmfaz8390-08-50 19:25:00* Test Item Value Reference Range Interpretation Comments White Blood Count (test code = 6690-2) 5.62 4.8-10.8 [facility] HospitalRed Blood [id number] 19:25:00* Test Item Value Reference Range Interpretation Comments Red Blood Count (test code = 789-8) 4.38 3.6-5.1 [facility] HospitalHemoglobin2019-02-28 19:25:00* Test Item Value Reference Range Interpretation Comments Hemoglobin (test code = 61132-0) 13.7 12.0-16.0 [facility] HospitalHematocrit2019-02-28 19:25:00* Test Item Value Reference Range Interpretation Comments Hematocrit (test code = 4544-3) 40.9 34.2-44.1 [facility] HospitalMean Corpuscular Mnjslv1339-73-80 19:25:00* Test Item Value Reference Range Interpretation Comments Mean Corpuscular Volume (test code = 787-2) 93.4 81-99 [facility] HospitalMean Corpuscular Arpofagmxa8807-08-73 19:25:00* Test Item Value Reference Range Interpretation Comments Mean Corpuscular Hemoglobin (test code = 785-6) 31.3 28-32 [facility] HospitalMean Corpuscular Hemoglobin Concent 2018-04-25 19:25:00* Test Item Value Reference Range Interpretation Comments Mean Corpuscular Hemoglobin Concent (test code = 786-4) 33.5 31-35 [facility] HospitalRed Cell Distribution [id number] 19:25:00* Test Item Value Reference Range Interpretation Comments Red Cell Distribution Width (test code = 07629-0) 13.0 11.7 -14.4 [facility] HospitalPlatelet [id number] 19:25:00* Test Item Value Reference Range Interpretation Comments Platelet Count (test code = 777-3) 258 140-360 [facility] HospitalNeutrophils (%) (Auto)2018-04-25 19:25:00 * Test Item Value Reference Range Interpretation Comments Neutrophils (%) (Auto) (test code = 37075-7) 83.4 38.7-80.0 H [facility] HospitalLymphocytes (%) (Auto)2018-04-25 19:25:00 * Test Item Value Reference Range Interpretation Comments Lymphocytes (%) (Auto) (test code = 736-9) 11.4 18.0-39.1 L [facility] HospitalMonocytes (%) (Auto)2018-04-25 19:25:00* Test Item Value Reference Range Interpretation Comments Monocytes (%) (Auto) (test code = 5905-5) 4.4 4.4-11.3 [facility] HospitalEosinophils (%) (Auto)2018-04-25 19:25:00 * Test Item Value Reference Range Interpretation Comments Eosinophils (%) (Auto) (test code = 713-8) 0.4 0.0-6.0 [facility] HospitalBasophils (%) (Auto)2018-04-25 19:25:00* Test Item Value Reference Range Interpretation Comments Basophils (%) (Auto) (test code = 706-2) 0.2 0.0-1.0 [facility] HospitalIM GRANULOCYTES %2018-04-25 19:25:00* Test Item Value Reference Range Interpretation Comments IM GRANULOCYTES % (test code = IM GRANULOCYTES %) 0.2 0.0- 1.0 [facility] HospitalNeutrophils # (Auto)2018-04-25 19:25:00* Test Item Value Reference Range Interpretation Comments Neutrophils # (Auto) (test code = 751-8) 4.7 2.1-6.9 [facility] HospitalLymphocytes # (Auto)2018-04-25 19:25:00* Test Item Value Reference Range Interpretation Comments Lymphocytes # (Auto) (test code = 08840-9) 0.6 1.0-3.2 L [facility] HospitalMonocytes # (Auto)2018-04-25 19:25:00* Test Item Value Reference Range Interpretation Comments Monocytes # (Auto) (test code = 742-7) 0.3 0.2-0.8 [facility] HospitalEosinophils # (Auto)2018-04-25 19:25:00* Test Item Value Reference Range Interpretation Comments Eosinophils # (Auto) (test code = 711-2) 0.0 0.0-0.4 [facility] HospitalBasophils # (Auto)2018-04-25 19:25:00* Test Item Value Reference Range Interpretation Comments Basophils # (Auto) (test code = 704-7) 0.0 0.0-0.1 [facility] HospitalAbsolute Immature Granulocyte (auto 2018-04-25 19:25:00* Test Item Value Reference Range Interpretation Comments Absolute Immature Granulocyte (auto (neris t code = Absolute Immature Granulocyte (auto) 0.01 0-0.1 [facility]
[2019-10-21] MEDS ORDERED: ONDANSETRON ODT8 MG PO (18:40)
--- NOTE | 2019-10-21 18:41 | Emergency Department Note ---
History of Present Illnes History of Present Illness Chief Complaint: epigastric pain History of Present Illness This is a 34 year old female. was doing well prior to this. 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 Any updates have been documented here. Past Medical History Recent Fever: No Clinical Suspicion of Infectio: No New/Unexplained Change in Ment: No Past Medical History: GERD Other Medical History: celiac disease gastritis esophagitis Past Surgical History: None Other Surgery: dental implants Social History Smoking Cessation: Never Smoker Counseling Performed: No Alcohol Use: Occasional Any Illegal Drug Use: No Physically hurt or threatened: No Other Last Tetanus: UNK Any Pre-Existing Lines (PICC,: No Review of Systems Review of Systems Constitutional: Reports no symptoms EENTM: Reports no symptoms Cardiovascular: Reports no symptoms Respiratory: Reports no symptoms Gastrointestinal: Reports as per HPI Genitourinary: Reports as per HPI, Reports dysuria, Reports frequency Musculoskeletal: Reports no symptoms Integumentary: Reports no symptoms Neurological: Reports no symptoms Psychological: Reports no symptoms Endocrine: Reports no symptoms Hematological/Lymphatic: Reports no symptoms Physical Exam Related Data Allergies: Coded Allergies: pantoprazole (Verified Allergy, Severe, lip swelling and mouth numbness, 10/21/19) Triage Vital Signs Vital Signs Date Time Temp Pulse Resp B/P (MAP) Pulse Ox O2 Delivery O2 Flow Rate FiO2 10/21/19 17:15 99.6 81 16 121/83 98 Room Air Vital signs reviewed: Yes Physical Exam CONSTITUTIONAL Constitutional: Present well-developed, Present well-nourished HENT HENT: Present normocephalic, Present atraumatic, Present oropharynx clear/moist, Present nose normal HENT L/R: Present left ext ear normal, Present right ext ear normal EYES Eyes: Reports PERRL, Reports conjunctivae normal NECK Neck: Present ROM normal, Present supple PULMONARY Pulmonary: Present effort normal, Present breath sounds normal CARDIOVASCULAR Cardiovascular: Present regular rhythm, Present heart sounds normal, Present capillary refill normal, Present normal rate GASTROINTESTINAL Abdominal: Present soft, Present bowel sounds normal, Present tender (epigastric), Present guarding; Absent distension, Absent mass, Absent rebound, Absent hernia GENITOURINARY Genitourinary: Present exam deferred SKIN Skin: Present warm, Present dry MUSCULOSKELETAL Musculoskeletal: Present ROM normal NEUROLOGICAL Neurological: Present alert, Present oriented x 3, Present no gross motor or sensory deficits PSYCHOLOGICAL Psychological: Present mood/affect normal, Present judgement normal Assessment & Plan Medical Decision Making MDM see below Reassessment Reassessment time: 18:32 Reassessment no more pain s/p viscous lidocaine Assessment & Plan Final Impression: (1) Acute gastritis (2) Urinary tract infection Depart Disposition: HOME, SELF-CARE Last Vital Signs Date Time Temp Pulse Resp B/P (MAP) Pulse Ox O2 Delivery O2 Flow Rate FiO2 10/21/19 17:15 99.6 81 16 121/83 98 Room Air Home Meds Active Scripts Ciprofloxacin Hcl (CIPRO) 500 Mg Tablet, 500 MG PO Q12H, #20 TAB Prov:ELLA CHANDLER 10/21/19 Ondansetron (ONDANSETRON ODT) 8 Mg Tab.rapdis, 4 MG PO Q4HR PRN for NAUSEA AND VOMITING, #30 TAB Prov:ELLA CHANDLER 10/21/19 Medications in the ED Sodium Chloride 10 ml PRN PRN INJ IV SITE FLUSH; Start 10/21/19 at 18:00; Stop 11/20/19 at 17:59 Ondansetron HCl 4 mg NOW IV ; Start 10/21/19 at 18:00; Stop 10/21/19 at 19:59 Ketorolac Tromethamine 30 mg ONCE IV ; Start 10/21/19 at 18:00; Stop 10/21/19 at 18:59 Belladonna Alkaloids/ Phenobarbital 60 ml TID PO ; Start 10/21/19 at 21:00; Stop 11/20/19 at 20:59 Lidocaine HCl 15 ml STK-MED ONCE .ROUTE ; Start 10/21/19 at 18:01; Stop 10/21/19 at 17:55; Status DC Belladonna Alkaloids/ Phenobarbital 10 ml STK-MED ONCE .ROUTE ; Start 10/21/19 at 18:01; Stop 10/21/19 at 17:55; Status DC Magnesium Aluminum Silicate 30 ml STK-MED ONCE .ROUTE ; Start 10/21/19 at 18:01; Stop 10/21/19 at 17:56; Status DC ELLA CHANDLER Oct 21, 2019 18:41
[2019-10-21] MEDS ORDERED: CIPRO500 MG PO (18:50)
[2019-10-21 19:02] VITALS: BP 103/66
[2019-10-21] MEDS ORDERED: DONNATAL/LIDOCAINE/MAALOX 30 ML SUSP PO SCH (21:00)
== END 2019-10-21 19:03 | disposition home or self-care (01) ==
LOC: FSED 16:57
DX: K29.00 Acute gastritis without bleeding (principal); R10.13 Epigastric pain; N39.0 Urinary tract infection, site not specified; R11.2 Nausea with vomiting, unspecified; K21.9 Gastro-esophageal reflux disease without esophagitis; K90.0 Celiac disease
CPT/HCPCS: 80048; 80076; 81003; 85025; 96374; 96375; 99283; J1885; J2405

== ENCOUNTER 2020-09-06 14:16 | Emergency (ER) | payer OTHER ==
[~2020-09-06] VITALS: Ht 160 cm; Wt 83.5 kg
[~2020-09-06 14:16] MED LIST: CIPRO500 MG PO; ONDANSETRON ODT8 MG PO
[2020-09-06] MEDS ORDERED: FAMOTIDINE 20 MG/2 ML VIAL IV STA (15:20)
[2020-09-06] MEDS ORDERED: SODIUM CHLORIDE 0.9% 1000ML 1,000 ML ONE (15:25)
[2020-09-06] MEDS ORDERED: ONDANSETRON HCL INJ 2MG/ML 2ML 2 MG/ML VIAL ONE (15:25)
[2020-09-06] MEDS ORDERED: FAMOTIDINE 20 MG/2 ML VIAL IV ONE (15:26)
[2020-09-06] MEDS ORDERED: DONNATAL/LIDOCAINE/MAALOX 30 ML SUSP PO ONE (15:30)
[2020-09-06] MEDS ORDERED: LIDOCAINE VISC 2% SOLN 15 ML UDC ONE (15:30)
[2020-09-06] MEDS ORDERED: MAGNESIUM/ALUMINUM/SIMETHICONE 30 ML UDC ONE (15:30)
[2020-09-06] MEDS ORDERED: BELLADONNA ALK/PHENOBARBITAL 5 ML UDC ONE (15:30)
[2020-09-06] MEDS ORDERED: FAMOTIDINE20 MG PO (15:38)
[2020-09-06] MEDS ORDERED: ONDANSETRON HCL INJ 2MG/ML 2ML 2 MG/ML VIAL IV STA (16:07)
[2020-09-06] MEDS ORDERED: KETOROLAC TROMETHAMINE 30 MG/ML VIAL IV STA (16:11)
[2020-09-06] MEDS ORDERED: SODIUM CHLORIDE 0.9% 1000ML 1,000 ML IV ONE (16:15)
[2020-09-06] MEDS ORDERED: CARAFATE1 GM PO (17:31)
== END 2020-09-06 17:42 | disposition home or self-care (01) ==
LOC: FSED 16:00
DX: R10.13 Epigastric pain (principal); R11.0 Nausea; K29.00 Acute gastritis without bleeding; K76.89 Other specified diseases of liver
CPT/HCPCS: 76705; 80048; 80076; 81003; 81025; 85025; 96374; 96375; 99284; J1885; J2405; J7030

== ENCOUNTER → 2020-10-08 | Day surgery (SDC) | payer OTHER ==
[~2020-10-08] MED LIST changes: +CARAFATE1 GM PO; +FAMOTIDINE20 MG PO; +PROPOFOL IV EMULSION 10 MG/ML 20 ML VIAL ONE
[2020-10-08 09:25] VITALS: BP 107/70
== END | disposition home or self-care (01) ==
LOC: OR 07:24
PROVIDERS: ATTEND Internal Medicine Gastroenterology
DX: K29.70 Gastritis, unspecified, without bleeding (principal); K31.7 Polyp of stomach and duodenum; K31.89 Other diseases of stomach and duodenum; D13.0 Benign neoplasm of esophagus; K20.90 Esophagitis, unspecified without bleeding; K22.8 Other specified diseases of esophagus; K21.9 Gastro-esophageal reflux disease without esophagitis; K44.9 Diaphragmatic hernia without obstruction or gangrene; Z88.8 Allergy status to other drugs, medicaments and biological substances; Z01.812 Encounter for preprocedural laboratory examination; Z20.822 Contact with and (suspected) exposure to COVID-19; Z68.32 Body mass index [BMI] 32.0-32.9, adult
CPT/HCPCS: 43239; 81025; J2704; U0002

== ENCOUNTER → 2022-12-30 | Day surgery (SDC) | payer OTHER ==
[~2022-12-30] MED LIST changes: +FENTANYL CITRATE/PF 100MCG/2 ML INJ ONE; +FISH OIL 1,0001 EAC7 PO; +IMMUNE SUPPORT PO; +LACTATED RINGER'S 1,000 ML ONE; +MAGNESIUM OXID400 MG PO; +METOCLOPRAMIDE HCL 10 MG/2ML VIAL ONE; +MIDAZOLAM HCL 2 MG/2 ML VIAL ONE; +MULTI-VITAMIN1 EACH PO; +VIT C PO; +VIT E PO; +vit d PO
[2022-12-30 11:45] VITALS: TEMP 97.4
[2022-12-30 12:15] VITALS: BP 109/81; PULSE 59; RESP 18; O2SAT 96
[2023-01-03 07:19] LABS: ENDOMYSIAL ANTIBODIES, IGA Negative (Negative)
== END | disposition home or self-care (01) ==
LOC: ENDO 08:48
PROVIDERS: ATTEND Internal Medicine Gastroenterology
DX: K20.90 Esophagitis, unspecified without bleeding (principal); K31.7 Polyp of stomach and duodenum; K29.50 Unspecified chronic gastritis without bleeding; K21.9 Gastro-esophageal reflux disease without esophagitis; K44.9 Diaphragmatic hernia without obstruction or gangrene; Z71.3 Dietary counseling and surveillance; R09.A2 Foreign body sensation, throat; K82.8 Other specified diseases of gallbladder; K76.0 Fatty (change of) liver, not elsewhere classified; D64.9 Anemia, unspecified; Z88.8 Allergy status to other drugs, medicaments and biological substances; Z91.018 Allergy to other foods; Z68.34 Body mass index [BMI] 34.0-34.9, adult; Z86.16 Personal history of COVID-19
CPT/HCPCS: 43239; 43450; 81025; 82784; 83516; 86256; J2250; J2704; J2765; J3010; J7121